=== PATIENT | female | born 1935 ===

== ENCOUNTER 2018-09-12 17:32 | Inpatient (IN) ==
[2018-09-12] MEDS ORDERED: GLUCAGON 1 MG VIAL IM PRN (21:01)
[2018-09-12] MEDS ORDERED: DEXTROSE 50% 25 GM/50 ML SYRINGE IV PRN (21:01)
[2018-09-12] MEDS ORDERED: ACETAMINOPHEN 325 MG TABLET PO PRN (21:01)
[2018-09-12] MEDS ORDERED: MAGNESIUM SULF RIDER 4 GM in PREMIX 1 EACH IV PRN (21:01)
[2018-09-12] MEDS ORDERED: ZALEPLON 5 MG CAPSULE PO PRN (21:01)
[2018-09-12] MEDS ORDERED: ONDANSETRON 4 MG/2 ML VIAL IV PRN (21:01)
[2018-09-12] MEDS ORDERED: MAGNESIUM SULF RIDER 2 GM in PREMIX 1 EACH IV PRN (21:01)
[2018-09-12] MEDS: INSULIN REGULAR 100 UNIT/ML SUBCUT SCH (23:38)
[2018-09-12] MEDS: ENOXAPARIN 40 MG/0.4 ML SYRINGE SUBCUT SCH (23:38)
[2018-09-13 07:02] LABS: Basophils % 0.3 % (0.0-0.8); Eosinophils # 0.1 10*3/uL (0.0-0.87); Eosinophils % 2.9 % (0.00-10.9); Hematocrit 27.7 VOL% (35.7-47.0); Hemoglobin 8.7 GM/DL (12.0-16.0); Immature Granulocytes % 0.3 %; Immature Granulocytes Absolute 0.01 #; Lymphocytes # 1.4 10*3/uL (1.4-4.0); Lymphocytes % 36.4 % (21.3-54.2); Mean Corpuscular HGB Conc 31.4 GM/DL (32-36); Mean Corpuscular Hemoglobin 32 PG (27-34); Mean Corpuscular Volume 101.1 FL (87-102); Mean Platelet Volume 9.1 FL (9.6-12.0); Monocytes # 0.3 10*3/uL (0.11-0.8); Monocytes % 7.1 % (1.7-12.7); Platelet Count 276 T/CUMM (130-400); Red Blood Count 2.74 MC/CUMM (3.8-5.5); Red Cell Distribution Width 16.8 % (9.3-17.3); White Blood Count 3.8 T/CUMM (4-12)
[2018-09-13 07:21] LABS: Alanine Aminotransferase < 6 U/L (13-56); Alkaline Phosphatase 60 U/L (45-117); Aspartate Amino Transferase 11 U/L (0-37); Blood Urea Nitrogen 17 MG/DL (7-18); Calcium 8.7 MG/DL (8.5-10.1); Glucose 131 MG/DL (74-106); Osmolality,Calculated 284.3 MOS/KG (273-304); Potassium 3.6 MMOL/L (3.5-5.1); Sodium 141 MMOL/L (136-145); Total Protein 9.9 G/DL (6.4-8.3)
[2018-09-13] MEDS ORDERED: SACUBITRIL/VALSARTAN 49-51 MG TABLET PO SCH (09:00)
[2018-09-13] MEDS: FUROSEMIDE 20 MG/2 ML VIAL IV SCH ×2 (09:30→17:05)
[2018-09-13] MEDS: SPIRONOLACTONE 25 MG TABLET PO SCH (09:31)
[2018-09-13] MEDS: CARVEDILOL 3.125 MG TABLET PO SCH ×2 (09:31→22:23)
[2018-09-13] MEDS: INSULIN REGULAR 100 UNIT/ML SUBCUT SCH ×4 (09:31→22:23)
[2018-09-13] MEDS: PANTOPRAZOLE 40 MG TABLET PO SCH (09:31)
[2018-09-13 09:33] LABS: % Iron Saturation 19.9 % (18-50); Ferritin 239.3 ng/ml (8-252); Risk Ratio 2.07; Total Protein 10.4 G/DL (6.4-8.3); VLDL CHOLESTEROL 10.2 MG/DL
[2018-09-13] MEDS ORDERED: ROSUVASTATIN 10 MG TABLET PO SCH (21:00)
[2018-09-13] MEDS: ENOXAPARIN 40 MG/0.4 ML SYRINGE SUBCUT SCH (22:24)
[2018-09-14 05:18] LABS: Basophils % 0.5 % (0.0-0.8); Eosinophils # 0.1 10*3/uL (0.0-0.87); Eosinophils % 2.7 % (0.00-10.9); Hematocrit 26.7 VOL% (35.7-47.0); Hemoglobin 8.5 GM/DL (12.0-16.0); Immature Granulocytes % 0.5 %; Immature Granulocytes Absolute 0.02 #; Lymphocytes # 1.3 10*3/uL (1.4-4.0); Lymphocytes % 35.1 % (21.3-54.2); Mean Corpuscular HGB Conc 31.8 GM/DL (32-36); Mean Corpuscular Hemoglobin 32 PG (27-34); Mean Corpuscular Volume 99.6 FL (87-102); Mean Platelet Volume 9.3 FL (9.6-12.0); Monocytes # 0.3 10*3/uL (0.11-0.8); Monocytes % 6.9 % (1.7-12.7); Neutrophils % 54.3 % (38.7-73.9); Platelet Count 297 T/CUMM (130-400); Red Blood Count 2.68 MC/CUMM (3.8-5.5); Red Cell Distribution Width 16.8 % (9.3-17.3); White Blood Count 3.8 T/CUMM (4-12)
[2018-09-14 05:30] LABS: Calcium 8.6 MG/DL (8.5-10.1); Osmolality,Calculated 279.7 MOS/KG (273-304); Potassium 3.3 MMOL/L (3.5-5.1)
[2018-09-14 06:03] LABS: Anisocytosis Slight; Microcytosis Slight
[2018-09-14 06:04] LABS: Platelet Estimate Normal
[2018-09-14] MEDS ORDERED: POTASSIUM CHLORIDE 20 MEQ TABLET PO ONE (06:56)
[2018-09-14 07:52] LABS: Total Protein (Chem) 10.4 G/DL (6.4-8.3)
[2018-09-14] MEDS: INSULIN REGULAR 100 UNIT/ML SUBCUT SCH ×3 (08:29→17:17)
[2018-09-14] MEDS: FUROSEMIDE 20 MG/2 ML VIAL IV SCH ×2 (08:51→16:09)
[2018-09-14] MEDS: CARVEDILOL 3.125 MG TABLET PO SCH (08:51)
[2018-09-14] MEDS: SPIRONOLACTONE 25 MG TABLET PO SCH (08:51)
[2018-09-14] MEDS: PANTOPRAZOLE 40 MG TABLET PO SCH (08:51)
[2018-09-14 10:04] LABS: Albumin (SPE) 2.9 G/DL (3.2-5.3); Albumin (SPE) Rel % 28.1 %; Alpha 1 (SPE) 0.4 G/DL (0.1-0.4); Alpha 1 (SPE) Rel % 3.4 %; Alpha 2 (SPE) 0.9 G/DL (0.4-1.0); Alpha 2 (SPE) Rel % 8.6 %; Beta (SPE) 5.5 G/DL (0.5-1.1)
[2018-09-14 10:05] LABS: Gamma (SPE) 0.6 G/DL (0.7-1.7); Gamma (SPE) Rel % 6.6 %
[2018-09-14 10:06] LABS: Beta (SPE) Rel % 53.3 %
[2018-09-14] MEDS ORDERED: AMITRIPTYLINE 10 MG TABLET PO PRN (11:45)
[2018-09-14 16:11] VITALS: BP 105/68
[2018-09-14] MEDS ORDERED: GABAPENTIN 300 MG CAPSULE PO SCH (21:00)
[2018-09-14] MEDS ORDERED: CILOSTAZOL 50 MG TABLET PO SCH (21:00)
[2018-09-14] MEDS ORDERED: amLODIPine 10 MG TABLET PO SCH (21:00)
[2018-09-14] MEDS ORDERED: FAMOTIDINE 20 MG TABLET PO SCH (21:00)
== END 2018-09-14 18:21 | disposition home health service (06) | DRG 291 ==
LOC: N.TELEN → OBSVTOIN 19:17 → SUATTDRO 19:17
PROVIDERS: ADMIT Internal Medicine; ATTEND Internal Medicine Geriatric Medicine